=== PATIENT | female | born 1950 | race African-American/Black ===

== ENCOUNTER 2023-01-05 22:00 | Emergency (ER) | payer SELFPAY ==
[~2023-01-05] VITALS: Ht 162.6 cm; Wt 87.0 kg
[2023-01-05 22:03] VITALS: BP 120/79
[2023-01-06] MEDS ORDERED: DEXAMETHASONE 10 MG/ML VIAL IV ONE (00:30)
[2023-01-06] MEDS ORDERED: ACET-2708 MT (02:08)
[2023-01-06] MEDS ORDERED: BENZ1LOZ73 MT (02:08)
[2023-01-06] MEDS ORDERED: TUSSL MT (02:08)
== END 2023-01-06 02:31 | disposition home or self-care (01) ==
LOC: ER 22:00
DX: R05.9 Cough, unspecified (principal); J02.9 Acute pharyngitis, unspecified; E11.9 Type 2 diabetes mellitus without complications; E78.00 Pure hypercholesterolemia, unspecified; I10 Essential (primary) hypertension; Z88.6 Allergy status to analgesic agent; Z20.822 Contact with and (suspected) exposure to COVID-19
CPT/HCPCS: 71045; 87426; 87804; 96374; 99284; C9803; J1100; Z7610